=== PATIENT | male | born 1935 | race Two or more races ===

== ENCOUNTER → 2017-05-21 | Outpatient (CLI) | payer MEDICARE, OTHER ==
[2015-03-09 14:21] VITALS: BMI 28.1
[~2017-05-21] MED LIST: ALLEVE PO; ASPI-1471 PO; ASPIRIN PO; ATOR40TA24 PO; BLOO-1037 MC; BLOO1EAC MC; CEP500 PO; CHOL100052 PO; DOC100 PO; FAM20 PO; FLU180SY9 IM; FLUO-202 PO; FLUO20TA2 PO; FLUO40CA67 PO; FLUT16SP19; FOL1 PO; FOLI-68 PO; FOLI5CAP PO; HUMALOG SC; HUMNI SC; HUMNI SQ; IBU600 PO; INSU100C14 SQ; INSU100I35 SQ; INSU100V24 SQ; INSU200I4 SUBQ; ISOM60 PO; ISOS60TA42 PO; LEVO-85 PO; LIS10 PO; LISI20TA29 PO; LOR5/325 PO; METF-1 PO; METF-410 PO; METO-253 PO; METO-259 PO; METO50TA19 PO; NAPR-1043 PO; NIT4 SL; NOVOLOG SUBQ; ONDA4TAB SL; OXYGENHOME INH; PAN40 PO; PIOG45TA18 PO; [UNRECOGNIZED DRUG - CODE] MC
[2017-05-21 07:47] LABS: PLATELET COUNT, AUTOMATED 149 K/uL (150-450)
[2017-05-21 07:58] LABS: LDL CHOLESTEROL 63 mg/dl
== END ==
LOC: LAB 07:11
PROVIDERS: ATTEND Internal Medicine
DX: E11.9 Type 2 diabetes mellitus without complications (principal); I50.21 Acute systolic (congestive) heart failure; E78.5 Hyperlipidemia, unspecified; I10 Essential (primary) hypertension
CPT/HCPCS: 36415; 82040; 82247; 82310; 82374; 82435; 82465; 82565; 82947; 83036; 83718; 84075; 84132; 84155; 84295; 84439; 84443; 84450; 84460; 84478; 84481; 84520; 85025

== ENCOUNTER → 2017-06-11 | Outpatient (CLI) | payer MEDICARE, OTHER ==
[2015-03-09 14:21] VITALS: BMI 28.1
== END ==
LOC: LAB 09:12
PROVIDERS: ATTEND Nurse Practitioner Family
DX: R94.6 Abnormal results of thyroid function studies (principal)
CPT/HCPCS: 36415; 84439; 84481

== ENCOUNTER → 2017-08-19 | Outpatient (CLI) | payer MEDICARE, OTHER ==
[2015-03-09 14:21] VITALS: BMI 28.1
[~2017-08-19] MED LIST changes: +LEVO25TA61 PO; +LEVO50TA86 PO; +METO-235 PO; +NEED1DIS64 MC
== END ==
LOC: LAB 09:27
PROVIDERS: ATTEND Nurse Practitioner Family
DX: F32.9 Major depressive disorder, single episode, unspecified (principal); E78.5 Hyperlipidemia, unspecified; E11.9 Type 2 diabetes mellitus without complications
CPT/HCPCS: 36415; 82040; 82247; 82310; 82374; 82435; 82565; 82947; 83036; 84075; 84132; 84155; 84295; 84443; 84450; 84460; 84520

== ENCOUNTER → 2017-09-30 | Outpatient (CLI) | payer MEDICARE, OTHER ==
[2015-03-09 14:21] VITALS: BMI 28.1
[~2017-09-30] MED LIST changes: +LISI5TAB25 PO; -METF-410 PO; +METF-411 PO
== END ==
LOC: LAB 09:48
PROVIDERS: ATTEND Nurse Practitioner Family
DX: F32.9 Major depressive disorder, single episode, unspecified (principal); I10 Essential (primary) hypertension; E11.69 Type 2 diabetes mellitus with other specified complication; E03.9 Hypothyroidism, unspecified
CPT/HCPCS: 36415; 84443

== ENCOUNTER → 2017-12-14 | Outpatient (CLI) | payer MEDICARE, OTHER ==
[2015-03-09 14:21] VITALS: BMI 28.1
[2017-12-14 10:37] LABS: PLATELET COUNT, AUTOMATED 157 K/uL (150-450)
[2017-12-14 10:51] LABS: LDL CHOLESTEROL 68 mg/dl
== END ==
LOC: LAB 09:59
PROVIDERS: ATTEND Nurse Practitioner Family
DX: I10 Essential (primary) hypertension (principal); E78.5 Hyperlipidemia, unspecified; E11.65 Type 2 diabetes mellitus with hyperglycemia
CPT/HCPCS: 36415; 82040; 82247; 82310; 82374; 82435; 82465; 82565; 82947; 83036; 83718; 84075; 84132; 84155; 84295; 84443; 84450; 84460; 84478; 84520; 85025

== ENCOUNTER → 2018-05-30 | Outpatient (CLI) | payer MEDICARE, OTHER ==
[2015-03-09 14:21] VITALS: BMI 28.1
[~2018-05-30] MED LIST changes: +LISI-362 PO; -METF-411 PO; +METF-450 PO
[2018-05-30 10:54] LABS: PLATELET COUNT, AUTOMATED 163 K/uL (150-450)
== END ==
LOC: LAB 10:36
PROVIDERS: ATTEND Pharmacist Pharmacotherapy
DX: E11.65 Type 2 diabetes mellitus with hyperglycemia (principal); R42 Dizziness and giddiness
CPT/HCPCS: 36415; 82040; 82247; 82310; 82374; 82435; 82565; 82947; 83036; 84075; 84132; 84155; 84295; 84450; 84460; 84520; 85025

== ENCOUNTER 2018-08-19 18:15 | Emergency (ER) | payer MEDICARE, OTHER ==
[2015-03-09 14:21] VITALS: Wt 82.6 kg
[~2018-08-19 18:15] MED LIST changes: +FLUO-177 PO; +SERT-181 PO; +SERT-184 PO; +TRIA15CR40 TP
--- NOTE | 2018-08-19 18:37 | ER Report ---
History and Physical Time Seen By MD: 18:37 Hx. of Stated Complaint: Pt. having bright red rectal bleeding. Blood in toilet, filling toilet 3/4 full of blood. Pt. also constipated and having trouble urinating. Denies abdominal pain. Yesterday, he said he had a normal bowel movement. Nausea present today. HPI/ROS CHIEF COMPLAINT: rectal bleeding, unable to urinate HISTORY OF PRESENT ILLNESS: Patient is an 83-year-old male presenting to the ED with complaints of rectal bleeding and unable to urinate. Patient states that about an hour prior to arrival emergency room he had one bout of bloody diarrhea. He states that it had significant amounts of blood in it. He states that after that he felt fine. He denies any fevers, chills, did have one bout of nausea with no emesis. Patient states that he has not taken any medication for this. Patient states that he had a normal bowel movement yesterday, however has not had a bowel movement today and does feel constipated. He states that he is concerned about the amount of bleeding in his stool and wanted to be evaluated. REVIEW OF SYSTEMS: Respiratory: No cough, no dyspnea. Cardiovascular: No chest pain, no palpitations. Gastrointestinal: As noted above Musculoskeletal: No back pain. Allergies: Coded Allergies: No Known Drug Allergies (Verified , 08/19/18) Home Meds Active Scripts Sucralfate (CARAFATE) 1 Gm Tablet, 1 GM PO QID, #60 TAB Take before meals and at bedtime. Crush the tablet and mix with water before taking. Prov:SEJAL LOU [facility] 08/20/18 Pantoprazole Sodium (PANTOPRAZOLE SODIUM) 40 Mg Tablet.dr, 40 MG PO QDAY, #30 TAB.SR Prov:SEJAL LOU [employer] 08/20/18 Sertraline Hcl (SERTRALINE HCL) 100 Mg Tablet, 1 TAB PO QDAY, #30 TAB 1 Refill Prov:FELECIA GROSS APRN [employer]-C 07/22/18 Triamcinolone Acetonide 0.1% Cr 15 Gm Tube (TRIAMCINOLONE ACETONIDE 0.1% CREAM) 15 Gm Cream..g., 1 MENA TP BID for 7 Days, #60 TUBE 1 Refill apply spraingly to rash on legs twice daily until resolved do not use longer than 2 weeks Prov:FELECIA GROSS APRN-C 07/22/18 Folic Acid (FOLIC ACID) 1 Mg Tablet, 1 TAB PO QDAY, #90 TAB 0 Refills Prov:FELECIA GROSS APRN-C 07/11/18 Lisinopril (LISINOPRIL) 10 Mg Tablet, 1 TAB PO QDAY, #90 TAB 1 Refill Prov:FELECIA GROSS APRN-C 06/03/18 Levothyroxine Sodium (LEVOTHYROXINE SODIUM) 50 Mcg Tablet, 1 TAB PO DAILY, #90 TAB 0 Refills Prov:FELECIA GROSS APRN-C 06/03/18 Insulin Aspart 100 Un/Ml Pen (NOVOLOG FLEXPEN) 100 Unit/1 Ml Insuln.pen, 100 UNIT SQ DIRECTED, #2 BOX 1 Refill 30 breakfast, 10 units at noon, and 18 units at dinner Prov:FELECIA GROSS APRN-C 05/27/18 Isosorbide Mononitrate (ISOSORBIDE MONONITRATE ER) 60 Mg Tab.er.24h, 1 TAB PO QDAY, #90 TAB 1 Refill Prov:FELECIA GROSS APRN-C 03/25/18 Insulin Degludec (Tresiba Flextouch U-200) 200 Unit/Ml (3 Ml) Insuln.pen, 52 UNITS SUBQ QDAY, #9 EA 1 Refill Prov:FELECIA GROSS APRN-C 02/23/18 Atorvastatin Calcium (LIPITOR) 40 Mg Tablet, 2 TAB PO QDAY, #90 TAB 1 Refill Prov:FELECIA GROSS APRN-C 11/11/17 Metformin Hcl (METFORMIN HCL) 500 Mg Tablet, 1 TAB PO BID, #180 TAB 2 Refills Prov:FELECIA GROSS APRN-C 08/26/17 Metoprolol Succinate (TOPROL XL) 100 Mg Tab.er.24h, 1 TAB PO QDAY, #90 TAB 1 Refill Prov:FELECIA GROSS APRN-C 07/09/17 [place], Insulin Disposable (RELION PEN NEEDLES) 1 Each Dis.needle, BOX MC DIRECTED, #1 3 Refills Prov:RENATOFELECIAJESSICA BATRES [employer]ER-C 07/07/17 Blood Sugar Diagnostic (BLOOD GLUCOSE TEST STRIP) 1 Each Strip, 50 EA MC Q30D, #50 EA 12 Refills Use to test blood surgar daily. Prov:NANCY CHAVIS MD 03/03/17 Blood-Glucose Control, Normal (ACCU-CHEK SMARTVIEW) 1 Each Each, EACH MC DAILY, #50 Use to test Blood sugar daily Prov:NANCY CHAVIS MD 02/19/17 Reported Medications Blood Sugar Diagnostic, Disc (BREEZE 2) 1 Each Strip, 1 EACH MC BID, STRIP 12/12/16 Aspirin (ASPIR 81) 81 Mg Tablet.dr, 81 MG PO QDAY, TAB 03/05/15 Past Medical/Surgical History Patient has a past medical history of hypertension, hyperlipidemia, blood in stool, diabetes. Patient has surgical history of cholecystectomy, appendectomy, CABG, stents. Patient denies any pertinent family medical history. Reviewed Nurses Notes: Yes Hx Smoking: No Smoking Status: Never Smoker Exposure to Second Hand Smoke?: No Hx Substance Use Disorder: No Hx Alcohol Use: No Constitutional Vital Sign - Last 24 Hours 08/19/18 08/19/18 08/19/18 08/19/18 18:26 18:29 18:30 18:45 Temp 96.1 Pulse 89 88 81 Resp 16 B/P (MAP) 121/73 121/73 (89) 132/75 (94) Pulse Ox 92 91 91 O2 Delivery Room Air 08/19/18 08/19/18 08/19/18 08/19/18 19:00 19:15 19:30 19:45 Pulse 89 78 75 70 Resp 28 7 30 B/P (MAP) 145/80 (101) 146/77 (100) Pulse Ox 90 94 91 93 08/19/18 08/19/18 08/19/18 08/19/18 20:00 20:05 20:20 20:50 Pulse 72 72 73 88 Resp 26 28 17 38 B/P (MAP) 154/90 (111) Pulse Ox 96 96 88 08/19/18 08/19/18 08/19/18 08/19/18 21:00 21:05 21:20 21:30 Pulse 89 86 Resp 23 0 B/P (MAP) 137/70 (92) 109/53 (71) Pulse Ox 89 85 08/19/18 21:35 Pulse 82 Resp 16 Pulse Ox 95 Intake and Output 08/19/18 08/19/18 08/20/18 15:00 23:00 07:00 Intake Total 500 ml Output Total 600 ml Balance 500 ml -600 ml Physical Exam General Appearance: The patient is alert, has no immediate need for airway protection and no current signs of toxicity. Respiratory: Chest is non tender, lungs are clear to auscultation. Cardiac: regular rate and rhythm Gastrointestinal: Abdomen is soft and non tender, no masses, bowel sounds are hypoactive. Patient had large external hemorrhoids noted at 9:00 of the rectum. Musculoskeletal: Neck: Neck is supple and non tender. Extremities have full range of motion and are non tender. Skin: No rashes or lesions. DIFFERENTIAL DIAGNOSIS: After history and physical exam differential diagnosis was considered for ulcer, diverticulitis, bleeding hemorrhoids. Medical Decision Making Data Points Result Diagram: 08/19/18191008/19/181910 Laboratory Hematology Test 08/19/18 19:11 08/19/18 19:21 08/19/18 23:25 Red Blood Count 4.70 M/uL (4.00-5.60) Mean Corpuscular Volume 94.0 fL (80.0-96.0) Mean Corpuscular Hemoglobin 31.7 pg (26.0-33.0) Mean Corpuscular Hemoglobin Concent 33.7 g/dL (32.0-36.0) Red Cell Distribution Width 13.8 % (11.5-14.5) Mean Platelet Volume 8.0 fL (7.2-11.1) Neutrophils (%) (Auto) 93.4 % (39.4-72.5) Lymphocytes (%) (Auto) 3.1 % (17.6-49.6) Monocytes (%) (Auto) 3.2 % (4.1-12.4) Eosinophils (%) (Auto) 0.1 % (0.4-6.7) Basophils (%) (Auto) 0.2 % (0.3-1.4) Nucleated RBC Relative Count (auto) 0.1 /100WBC Neutrophils # (Auto) 11.7 K/uL (2.0-7.4) Lymphocytes # (Auto) 0.4 K/uL (1.3-3.6) Monocytes # (Auto) 0.4 K/uL (0.3-1.0) Eosinophils # (Auto) 0.0 K/uL (0.0-0.5) Basophils # (Auto) 0.0 K/uL (0.0-0.1) Nucleated RBC Absolute Count (auto) 0.01 K/uL Peripheral Blood Smear Yes Y/N Sodium Level 136 mmol/L (137-145) Potassium Level 4.3 mmol/L (3.5-5.0) Chloride Level 98 mmol/L (98-107) Carbon Dioxide Level 25 mmol/L (22-30) Blood Urea Nitrogen 23 mg/dl (9-21) Creatinine 1.00 mg/dl (0.66-1.25) Glomerular Filtration Rate Calc > 60.0 Random Glucose 306 mg/dl (75-110) Calcium Level 9.1 mg/dl (8.4-10.2) Total Bilirubin 0.6 mg/dl (0.2-1.3) Aspartate Amino Transf (AST/SGOT) 37 U/L (0-35) Alanine Aminotransferase (ALT/SGPT) 32 U/L (0-56) Alkaline Phosphatase 123 U/L (0-126) Total Protein 7.7 g/dl (6.3-8.2) Albumin 4.4 g/dl (3.5-5.0) Amylase Level 57 U/L (0-110) Lipase 22 U/L (23-300) Helicobacter pylori IgG Antibody Negative (NEGATIVE) Stool Occult Blood (IFOB) Positive (NEGATIVE) Urine Color Yellow Urine Clarity Clear Urine pH 5.0 pH (4.8-9.5) Urine Specific [place] 1.045 Urine Protein Negative mg/dL (NEGATIVE) Urine Glucose (UA) 500 mg/dL (NEGATIVE) Urine Ketones 20 mg/dL (NEGATIVE) Urine Blood Negative (NEGATIVE) Urine Nitrite Negative (NEGATIVE) Urine Bilirubin Negative (NEGATIVE) Urine Urobilinogen 0.2 mg/dL (0.2-1.9) Urine Leukocyte Esterase Negative (NEGATIVE) Urine RBC 3 /HPF (0-2/HPF) Urine WBC 1 /HPF (0-5/HPF) Urine Squamous Epithelial Cells None /LPF (</=FEW) Urine Transitional Epithelial Cells Few /LPF (NONE-FEW) Urine Bacteria Negative /HPF (NONE-FEW) Urine Hyaline Casts Few /LPF (NONE-FEW) Urine Mucus None /HPF (NONE-FEW) Chemistry Test 08/19/18 19:11 08/19/18 19:21 08/19/18 23:25 White Blood Count 12.5 k/uL (4.5-11.0) Red Blood Count 4.70 M/uL (4.00-5.60) Hemoglobin 14.9 g/dL (14.0-18.0) Hematocrit 44.2 % (42.0-52.0) Mean Corpuscular Volume 94.0 fL (80.0-96.0) Mean Corpuscular Hemoglobin 31.7 pg (26.0-33.0) Mean Corpuscular Hemoglobin Concent 33.7 g/dL (32.0-36.0) Red Cell Distribution Width 13.8 % (11.5-14.5) Platelet Count 210 K/uL (150-450) Mean Platelet Volume 8.0 fL (7.2-11.1) Neutrophils (%) (Auto) 93.4 % (39.4-72.5) Lymphocytes (%) (Auto) 3.1 % (17.6-49.6) Monocytes (%) (Auto) 3.2 % (4.1-12.4) Eosinophils (%) (Auto) 0.1 % (0.4-6.7) Basophils (%) (Auto) 0.2 % (0.3-1.4) Nucleated RBC Relative Count (auto) 0.1 /100WBC Neutrophils # (Auto) 11.7 K/uL (2.0-7.4) Lymphocytes # (Auto) 0.4 K/uL (1.3-3.6) Monocytes # (Auto) 0.4 K/uL (0.3-1.0) Eosinophils # (Auto) 0.0 K/uL (0.0-0.5) Basophils # (Auto) 0.0 K/uL (0.0-0.1) Nucleated RBC Absolute Count (auto) 0.01 K/uL Peripheral Blood Smear Yes Y/N Glomerular Filtration Rate Calc > 60.0 Calcium Level 9.1 mg/dl (8.4-10.2) Total Bilirubin 0.6 mg/dl (0.2-1.3) Aspartate Amino Transf (AST/SGOT) 37 U/L (0-35) Alanine Aminotransferase (ALT/SGPT) 32 U/L (0-56) Alkaline Phosphatase 123 U/L (0-126) Total Protein 7.7 g/dl (6.3-8.2) Albumin 4.4 g/dl (3.5-5.0) Amylase Level 57 U/L (0-110) Lipase 22 U/L (23-300) Helicobacter pylori IgG Antibody Negative (NEGATIVE) Stool Occult Blood (IFOB) Positive (NEGATIVE) Urine Color Yellow Urine Clarity Clear Urine pH 5.0 pH (4.8-9.5) Urine Specific [place] 1.045 Urine Protein Negative mg/dL (NEGATIVE) Urine Glucose (UA) 500 mg/dL (NEGATIVE) Urine Ketones 20 mg/dL (NEGATIVE) Urine Blood Negative (NEGATIVE) Urine Nitrite Negative (NEGATIVE) Urine Bilirubin Negative (NEGATIVE) Urine Urobilinogen 0.2 mg/dL (0.2-1.9) Urine Leukocyte Esterase Negative (NEGATIVE) Urine RBC 3 /HPF (0-2/HPF) Urine WBC 1 /HPF (0-5/HPF) Urine Squamous Epithelial Cells None /LPF (</=FEW) Urine Transitional Epithelial Cells Few /LPF (NONE-FEW) Urine Bacteria Negative /HPF (NONE-FEW) Urine Hyaline Casts Few /LPF (NONE-FEW) Urine Mucus None /HPF (NONE-FEW) Urinalysis Test 08/19/18 23:25 Urine Color Yellow Urine Clarity Clear Urine pH 5.0 pH (4.8-9.5) Urine Specific [place] 1.045 Urine Protein Negative mg/dL (NEGATIVE) Urine Glucose (UA) 500 mg/dL (NEGATIVE) Urine Ketones 20 mg/dL (NEGATIVE) Urine Blood Negative (NEGATIVE) Urine Nitrite Negative (NEGATIVE) Urine Bilirubin Negative (NEGATIVE) Urine Urobilinogen 0.2 mg/dL (0.2-1.9) Urine Leukocyte Esterase Negative (NEGATIVE) Urine RBC 3 /HPF (0-2/HPF) Urine WBC 1 /HPF (0-5/HPF) Urine Squamous Epithelial Cells None /LPF (</=FEW) Urine Transitional Epithelial Cells Few /LPF (NONE-FEW) Urine Bacteria Negative /HPF (NONE-FEW) Urine Hyaline Casts Few /LPF (NONE-FEW) Urine Mucus None /HPF (NONE-FEW) EKG/Imaging Imaging CT ABDOMEN PELVIS W/ CON HISTORY: Bloody diarrhea. COMPARISON: None. TECHNIQUE: Axial images were obtained from the lung bases through the symphysis pubis with intravenous contrast. Sagittal and coronal reformats were performed. One of the following dose optimization techniques was utilized in the performance of this exam: Automated exposure control; adjustment of the mA and/or kV according to the patient's size; or use of an iterative reconstruction technique. Specific details can be referenced in the facility's radiology CT exam operational policy. CONTRAST: 85 mL IV Isovue 370. FINDINGS: Lower chest: There is minimal atelectasis. There are calcified granulomas. There is coronary artery calcification. Liver: There are calcified granulomas. Gallbladder/biliary: Cholecystectomy. No intrahepatic or extrahepatic ductal dilation. Pancreas: Mild to moderate atrophy. Spleen: Normal. Adrenals: Fullness to the bilateral adrenal glands, compatible with hyperplasia. No mass. Kidneys/ureters/bladder: There is bilateral perinephric stranding, nonspecific, but often seen in older patients. There are too small to characterize low attenuating lesions within the left kidney, statistically likely to represent benign cysts. Ureters are normal. There is mild thickening of the bladder wall given the degree of distention. GI/mesentery/peritoneal cavity: There is a small type I hiatal hernia. There is no bowel obstruction. There is no wall thickening or pericolonic stranding. There is a large amount of formed stool in the rectal vault. There is a mild to moderate amount of formed stool in the rest of the colon. The appendix is not discretely visualized. No inflammatory stranding in the right lower quadrant. There are a few diverticula at the hepatic flexure. No diverticulitis. Vessels: There is severe atherosclerotic disease. No aneurysm. No dissection. Nodes: Normal. Pelvis: There are phleboliths. There is a moderate size fat-containing left inguinal hernia. Bones/vertebra/soft tissues: There is thickening of the skin of the right anterolateral thigh with an underlying high density structure or collection measuring 0.9 x 4.3 x greater than 5.2 cm. It extends off the inferior margin of the images (axial image 150 series 2). There are sternal closure wires. There is bony fusion across the right sacroiliac joint. Degenerative changes cause severe spinal canal stenosis at L3-4 (axial image 66 series 2). There is moderate degenerative change of the spine. There are numerous vacuum clefts. There is mild wedging of T12 and L1, likely physiologic. There is mild to moderate degenerative change of the hips. IMPRESSION: 1. Large amount of formed stool in the rectal vault and mild to moderate amount of stool throughout the rest of colon. No CT evidence for colitis. No bowel obstruction. 2. Diverticulosis without diverticulitis. 3. Degenerative changes cause severe narrowing of the spinal canal at L3-4. 4. Coronary artery calcification. 5. Skin thickening of the right anterolateral thigh with underlying collection or structure, potentially a hematoma/seroma. Please correlate with any bruising at this location. 6. Mild bladder wall thickening given the degree of distention, potentially due to a degree of bladder outlet obstruction. Report Dictated By: Jennifer Aguila at 08/19/2018 9:03 PM Report E-Signed By: Jennifer Aguila at 08/19/2018 9:17 PM ED Course/Re-evaluation ED Course Patient was admitted on exam room, history and physical were obtained. Differen tial diagnoses were considered. On examination lungs are clear, heart is regular, abdomen soft and nontender. Bowel sounds are hypoactive. A CBC, CMP, urinalysis, H. pylori were obtained. Lab results were unremarkable. Patient did have an elevated blood sugar of 306. Patient had a stable H&H. White count was slightly elevated 12.5. CT scan of the abdomen and pelvis was done. That showed significant amount of stool in the rectal vault. With me in the air of the study was fairly unremarkable. We did go ahead and do a enema. We were not able to have any success with that. Patient did have some nausea when he got up. The patient did have occult stool which was positive. Patient was not able to u rinate. We did place a catheter and was able to drain out 600 cc of urine. That was sent him to the lab and showed large glucose and some ketones. I discussed the findings with the patient and his . With him not being able have a bowel movement we did discuss doing a digital disimpaction. They deferred at this time. As a result of that deferring we will go ahead and discharge patient home at this time. We will have him do mag citrate tomorrow morning. Is my thought that with the patient having a difficult time urinating those likely secondary to the stool burden in the rectal vault. We will DC the catheter and they're to return to emergency room if condition worsens over the weekend. However would like him follow-up with his primary care provider early next week. Decision to Disposition Date: Aug 19, 2018 Decision to Disposition Time: 23:58 Depart Departure Latest Vital Signs Vital Signs Date Time Temp Pulse Resp B/P (MAP) Pulse Ox O2 Delivery O2 Flow Rate FiO2 08/19/18 21:35 82 16 95 08/19/18 21:30 109/53 (71) 08/19/18 18:26 96.1 Room Air Impression: Primary Impression: Blood in stool Additional Impression: Constipation Condition: Improved Disposition: HOME OR SELF-CARE Referrals: FELECIA GROSS APRN-C (PCP) New Scripts Sucralfate (CARAFATE) 1 Gm Tablet 1 GM PO QID, #60 TAB Take before meals and at bedtime. Crush the tablet and mix with water before taking. Prov: SEJAL LOU 08/20/18 Pantoprazole Sodium (PANTOPRAZOLE SODIUM) 40 Mg Tablet.dr 40 MG PO QDAY, #30 TAB.SR Prov: SEJAL LOU 08/20/18 Patient Instructions: Constipation (ED) Additional Instructions: Increase fluid intake. Get plenty of rest. Take the Mag Citrate in the morning. Return to the ER if condition worsens. Follow up with your primary care provider in the next week, Wednesday or Wednesday. Take the medication as prescribed. Continue with your normal medications. Problem Qualifiers Additional Impression: Constipation Constipation type: unspecified constipation type Qualified Codes: K59.00 - Constipation, unspecified SEJAL LOU Aug 19, 2018 18:37
[2018-08-19] MEDS ORDERED: NS(*) 0.9% 500 ML BAG 500 ML IV ONE (18:55)
[2018-08-19 19:31] LABS: PLATELET COUNT, AUTOMATED 210 K/uL (150-450)
[2018-08-19] MEDS ORDERED: MORPHINE 2 MG/ML SYR IVP ONE (19:55)
[2018-08-19] MEDS ORDERED: IOPAMIDOL 76% 150 ML INFUS BTL 150 ML ONE (20:05)
[2018-08-19] MEDS ORDERED: ONDANSETRON 4 MG/2 ML VIAL ONE (20:32)
--- NOTE | 2018-08-19 21:22 | RADIOLOGY IMAGING REPORT ---
FACILITY: [facility] PATIENT NAME: Mike Andre : 1935 MR: [id number] V: [id number] EXAM DATE: ORDERING PHYSICIAN: SEJAL LOU TECHNOLOGIST: Location: [facility] [place] Patient: Mike Andre : 1935 Visit/Account:[id number] Date of Sevice: 08/19/2018 CT ABDOMEN PELVIS W/ CON HISTORY: Bloody diarrhea. COMPARISON: None. TECHNIQUE: Axial images were obtained from the lung bases through the symphysis pubis with intravenou s contrast. Sagittal and coronal reformats were performed. One of the following dose optimization techniques was utilized in the performance of this exam: Autom ated exposure control; adjustment of the mA and/or kV according to the patient's size; or use of an i terative reconstruction technique. Specific details can be referenced in the facility's radiology CT exam operational policy. CONTRAST: 85 mL IV Isovue 370. FINDINGS: Lower chest: There is minimal atelectasis. There are calcified granulomas. There is coronary artery c alcification. Liver: There are calcified granulomas. Gallbladder/biliary: Cholecystectomy. No intrahepatic or extrahepatic ductal dilation. Pancreas: Mild to moderate atrophy. Spleen: Normal. Adrenals: Fullness to the bilateral adrenal glands, compatible with hyperplasia. No mass. Kidneys/ureters/bladder: There is bilateral perinephric stranding, nonspecific, but often seen in old er patients. There are too small to characterize low attenuating lesions within the left kidney, stat istically likely to represent benign cysts. Ureters are normal. There is mild thickening of the bladd er wall given the degree of distention. GI/mesentery/peritoneal cavity: There is a small type I hiatal hernia. There is no bowel obstruction. There is no wall thickening or pericolonic stranding. There is a large amount of formed stool in the rectal vault. There is a mild to moderate amount of formed stool in the rest of the colon. The appen pratibha is not discretely visualized. No inflammatory stranding in the right lower quadrant. There are a few diverticula at the hepatic flexure. No diverticulitis. Vessels: There is severe atherosclerotic disease. No aneurysm. No dissection. Nodes: Normal. Pelvis: There are phleboliths. There is a moderate size fat-containing left inguinal hernia. Bones/vertebra/soft tissues: There is thickening of the skin of the right anterolateral thigh with an underlying high density structure or collection measuring 0.9 x 4.3 x greater than 5.2 cm. It extend s off the inferior margin of the images (axial image 150 series 2). There are sternal closure wires. There is bony fusion across the right sacroiliac joint. Degenerative changes cause severe spinal lupe l stenosis at L3-4 (axial image 66 series 2). There is moderate degenerative change of the spine. The re are numerous vacuum clefts. There is mild wedging of T12 and L1, likely physiologic. There is mild to moderate degenerative change of the hips. IMPRESSION: 1. Large amount of formed stool in the rectal vault and mild to moderate amount of stool throughout t he rest of colon. No CT evidence for colitis. No bowel obstruction. 2. Diverticulosis without diverticulitis. 3. Degenerative changes cause severe narrowing of the spinal canal at L3-4. 4. Coronary artery calcification. 5. Skin thickening of the right anterolateral thigh with underlying collection or structure, potentia lly a hematoma/seroma. Please correlate with any bruising at this location. 6. Mild bladder wall thickening given the degree of distention, potentially due to a degree of bladde r outlet obstruction. Report Dictated By: Jennifer Aguila at 08/19/2018 9:03 PM Report E-Signed By: Jennifer Aguila at 08/19/2018 9:17 PM WSN:[id number]
[2018-08-19 21:30] VITALS: BP 109/53
[2018-08-20] MEDS ORDERED: SUCR1TAB85 PO (00:02)
[2018-08-20] MEDS ORDERED: PANT40TA65 PO (00:02)
[2018-08-20] MEDS ORDERED: MAGNESIUM CITRATE 300 ML BTL PO ONE (00:05)
[2018-08-21] MEDS ORDERED: HYDR25SU34 RC (14:54)
[2018-08-24] MEDS ORDERED: HYDR10FO7 RC (16:09)
== END 2018-08-20 00:34 | disposition home or self-care (01) ==
LOC: ER 18:48
DX: K92.1 Melena (principal); K59.00 Constipation, unspecified
CPT/HCPCS: 74177; 81001; 82150; 82274; 83690; 85025; 86677; 96374; 99284; A9270; J2270; J2405; J7040; Q9967; 82040; 82247; 82310; 82374; 82435; 82565; 82947; 84075; 84132; 84155; 84295; 84450; 84460; 84520

== ENCOUNTER 2018-08-21 11:53 | Emergency (ER) | payer MEDICARE, OTHER ==
[2015-03-09 14:21] VITALS: Wt 82.6 kg
[~2018-08-21 11:53] MED LIST changes: +PANT40TA65 PO; +SUCR1TAB85 PO
--- NOTE | 2018-08-21 12:07 | ER Report ---
History and Physical Time Seen By MD: 12:07 Hx. of Stated Complaint: PATIENT SEEN ON WEDNESDAY FOR CONSTIPATION. WAS GIVEN ENEMA. HAS NOT HAD BOWEL MOVEMENT SINCE WEDNESDAY. HPI/ROS CHIEF COMPLAINT: Constipation HISTORY OF PRESENT ILLNESS: Patient is an 83 year old male presenting to the ED for complaints of constipation. Patient was in the ED last Wednesday. During that visit a CT scan of his abdomen was done and a large amount of stool was found in the rectal vault. Patient received an enema without any results. Patient was sent home with magnesium citrate. Patient took this yesterday, Wednesday. Patient states he did not have a bowel movement after the magnesium citrate. REVIEW OF SYSTEMS: Respiratory: No cough, no dyspnea. Cardiovascular: No chest pain, no palpitations. Gastrointestinal: No nausea or vomiting. Abdominal discomfort. Musculoskeletal: No back pain. Allergies: Coded Allergies: No Known Drug Allergies (Verified , 08/19/18) Home Meds Active Scripts Hydrocortisone Acetate (HYDROCORTISONE ACETATE) 25 Mg Supp.rect, 25 MG RC BID, #14 SUPP.RECT Prov:SEJAL LOUP 08/21/18 Sucralfate (CARAFATE) 1 Gm Tablet, 1 GM PO QID, #60 TAB Take before meals and at bedtime. Crush the tablet and mix with water before taking. Prov:SEJAL LOU 08/20/18 Pantoprazole Sodium (PANTOPRAZOLE SODIUM) 40 Mg Tablet.dr, 40 MG PO QDAY, #30 TAB.SR Prov:SEJAL LOU 08/20/18 Sertraline Hcl (SERTRALINE HCL) 100 Mg Tablet, 1 TAB PO QDAY, #30 TAB 1 Refill Prov:FELECIA GROSS APRN-C 07/22/18 Triamcinolone Acetonide 0.1% Cr 15 Gm Tube (TRIAMCINOLONE ACETONIDE 0.1% CREAM) 15 Gm Cream..g., 1 MENA TP BID for 7 Days, #60 TUBE 1 Refill apply spraingly to rash on legs twice daily until resolved do not use longer than 2 weeks Prov:FELECIA GROSS APRNP-C 07/22/18 Folic Acid (FOLIC ACID) 1 Mg Tablet, 1 TAB PO QDAY, #90 TAB 0 Refills Prov:FELECIA GROSS APRN-C 07/11/18 Lisinopril (LISINOPRIL) 10 Mg Tablet, 1 TAB PO QDAY, #90 TAB 1 Refill Prov:FELECIA GROSS APRN-C 06/03/18 Levothyroxine Sodium (LEVOTHYROXINE SODIUM) 50 Mcg Tablet, 1 TAB PO DAILY, #90 TAB 0 Refills Prov:FELECIA GROSS APRN 06/03/18 Insulin Aspart 100 Un/Ml Pen (NOVOLOG FLEXPEN) 100 Unit/1 Ml Insuln.pen, 100 UNIT SQ DIRECTED, #2 BOX 1 Refill 30 breakfast, 10 units at noon, and 18 units at dinner Prov:EFLECIA GROSS APRN 05/27/18 Isosorbide Mononitrate (ISOSORBIDE MONONITRATE ER) 60 Mg Tab.er.24h, 1 TAB PO QDAY, #90 TAB 1 Refill Prov:FELECIA GROSS APRN 03/25/18 Insulin Degludec (Tresiba Flextouch U-200) 200 Unit/Ml (3 Ml) Insuln.pen, 52 UNITS SUBQ QDAY, #9 EA 1 Refill Prov:FELECIA GROSS APRN-C 02/23/18 Atorvastatin Calcium (LIPITOR) 40 Mg Tablet, 2 TAB PO QDAY, #90 TAB 1 Refill Prov:FELECIA GROSS APRN-C 11/11/17 Metformin Hcl (METFORMIN HCL) 500 Mg Tablet, 1 TAB PO BID, #180 TAB 2 Refills Prov:FELECIA GROSS APRN-C 08/26/17 Metoprolol Succinate (TOPROL XL) 100 Mg Tab.er.24h, 1 TAB PO QDAY, #90 TAB 1 Refill Prov:FELECIA GROSS APRNC 07/09/17 [place], Insulin Disposable (RELION PEN NEEDLES) 1 Each Dis.needle, BOX MC DIRECTED, #1 3 Refills Prov:FELECIA GROSS APRN-C 07/07/17 Blood Sugar Diagnostic (BLOOD GLUCOSE TEST STRIP) 1 Each Strip, 50 EA MC Q30D, #50 EA 12 Refills Use to test blood surgar daily. Prov:NANCY CHAVIS MD 03/03/17 Blood-Glucose Control, Normal (ACCU-CHEK SMARTVIEW) 1 Each Each, EACH MC DAILY, #50 Use to test Blood sugar daily Prov:NANCY CHAVIS MD 02/19/17 Reported Medications Blood Sugar Diagnostic, Disc (BREEZE 2) 1 Each Strip, 1 EACH MC BID, STRIP 12/12/16 Aspirin (ASPIR 81) 81 Mg Tablet.dr, 81 MG PO QDAY, TAB 03/05/15 Past Medical/Surgical History Patient has a past medical history of hypertension, hypercholesteroleai, diabetes, and cardiac disease. Patient has a surgical history of CABG, cholecystecomy, appendectomy, and cardiac stents, Reviewed Nurses Notes: Yes Hx Smoking: No Smoking Status: Never Smoker Exposure to Second Hand Smoke?: No Hx Substance Use Disorder: No Hx Alcohol Use: No Constitutional Vital Sign - Last 24 Hours 08/21/18 08/21/18 08/21/18 08/21/18 11:53 11:57 11:58 12:00 Temp 97.8 Pulse 85 92 Resp 16 B/P (MAP) 128/97 128/97 (107) 144/93 (110) Pulse Ox 91 O2 Delivery Room Air 08/21/18 08/21/18 08/21/18 08/21/18 12:13 12:30 12:33 12:53 Pulse 84 80 79 Resp 17 22 B/P (MAP) 142/76 (98) Pulse Ox 94 93 91 08/21/18 08/21/18 08/21/18 08/21/18 13:00 13:13 13:33 13:41 Pulse 81 85 Resp 42 B/P (MAP) 138/83 (101) Pulse Ox 97 O2 Flow Rate 2.0 08/21/18 15:28 B/P (MAP) 126/69 (88) Physical Exam General Appearance: The patient is alert, has no immediate need for airway protection and no current signs of toxicity. Eyes: Pupils equal and round no injection. Respiratory: Chest is non tender, lungs are clear to auscultation. Cardiac: regular rate and rhythm Gastrointestinal: Abdomen is soft and non tender, no masses, bowel sounds normal. Generalized tenderness to palpitation noted. Musculoskeletal: Neck: Neck is supple and non tender. DIFFERENTIAL DIAGNOSIS: After history and physical exam differential diagnosis was considered for constipation, impaction, hemorrhoids. Medical Decision Making Data Points Result Diagram: 08/21/18 1223 08/21/18 1223 Laboratory Hematology Test 08/21/18 12:23 08/21/18 15:09 Red Blood Count 4.47 M/uL (4.00-5.60) Mean Corpuscular Volume 94.0 fL (80.0-96.0) Mean Corpuscular Hemoglobin 32.1 pg (26.0-33.0) Mean Corpuscular Hemoglobin Concent 34.1 g/dL (32.0-36.0) Red Cell Distribution Width 13.7 % (11.5-14.5) Mean Platelet Volume 8.0 fL (7.2-11.1) Neutrophils (%) (Auto) 82.6 % (39.4-72.5) Lymphocytes (%) (Auto) 7.0 % (17.6-49.6) Monocytes (%) (Auto) 8.1 % (4.1-12.4) Eosinophils (%) (Auto) 0.7 % (0.4-6.7) Basophils (%) (Auto) 1.6 % (0.3-1.4) Nucleated RBC Relative Count (auto) 0.0 /100WBC Neutrophils # (Auto) 6.8 K/uL (2.0-7.4) Lymphocytes # (Auto) 0.6 K/uL (1.3-3.6) Monocytes # (Auto) 0.7 K/uL (0.3-1.0) Eosinophils # (Auto) 0.1 K/uL (0.0-0.5) Basophils # (Auto) 0.1 K/uL (0.0-0.1) Nucleated RBC Absolute Count (auto) 0.00 K/uL Peripheral Blood Smear Yes Y/N Sodium Level 136 mmol/L (137-145) Potassium Level 3.8 mmol/L (3.5-5.0) Chloride Level 100 mmol/L (98-107) Carbon Dioxide Level 26 mmol/L (22-30) Blood Urea Nitrogen 21 mg/dl (9-21) Creatinine 0.80 mg/dl (0.66-1.25) Glomerular Filtration Rate Calc > 60.0 Random Glucose 275 mg/dl (75-110) Calcium Level 8.9 mg/dl (8.4-10.2) Total Bilirubin 1.4 mg/dl (0.2-1.3) Aspartate Amino Transf (AST/SGOT) 54 U/L (0-35) Alanine Aminotransferase (ALT/SGPT) 31 U/L (0-56) Alkaline Phosphatase 90 U/L (0-126) Total Protein 7.9 g/dl (6.3-8.2) Albumin 4.3 g/dl (3.5-5.0) Urine Color Yellow Urine Clarity Clear Urine pH 6.0 pH (4.8-9.5) Urine Specific [place] 1.027 Urine Protein 30 mg/dL (NEGATIVE) Urine Glucose (UA) 500 mg/dL (NEGATIVE) Urine Ketones Trace mg/dL (NEGATIVE) Urine Blood Negative (NEGATIVE) Urine Nitrite Negative (NEGATIVE) Urine Bilirubin Negative (NEGATIVE) Urine Urobilinogen 4.0 mg/dL (0.2-1.9) Urine Leukocyte Esterase Negative (NEGATIVE) Urine RBC 1 /HPF (0-2/HPF) Urine WBC 3 /HPF (0-5/HPF) Urine Squamous Epithelial Cells None /LPF (</=FEW) Urine Bacteria Negative /HPF (NONE-FEW) Urine Mucus None /HPF (NONE-FEW) Chemistry Test 08/21/18 12:23 08/21/18 15:09 White Blood Count 8.2 k/uL (4.5-11.0) Red Blood Count 4.47 M/uL (4.00-5.60) Hemoglobin 14.3 g/dL (14.0-18.0) Hematocrit 42.0 % (42.0-52.0) Mean Corpuscular Volume 94.0 fL (80.0-96.0) Mean Corpuscular Hemoglobin 32.1 pg (26.0-33.0) Mean Corpuscular Hemoglobin Concent 34.1 g/dL (32.0-36.0) Red Cell Distribution Width 13.7 % (11.5-14.5) Platelet Count 178 K/uL (150-450) Mean Platelet Volume 8.0 fL (7.2-11.1) Neutrophils (%) (Auto) 82.6 % (39.4-72.5) Lymphocytes (%) (Auto) 7.0 % (17.6-49.6) Monocytes (%) (Auto) 8.1 % (4.1-12.4) Eosinophils (%) (Auto) 0.7 % (0.4-6.7) Basophils (%) (Auto) 1.6 % (0.3-1.4) Nucleated RBC Relative Count (auto) 0.0 /100WBC Neutrophils # (Auto) 6.8 K/uL (2.0-7.4) Lymphocytes # (Auto) 0.6 K/uL (1.3-3.6) Monocytes # (Auto) 0.7 K/uL (0.3-1.0) Eosinophils # (Auto) 0.1 K/uL (0.0-0.5) Basophils # (Auto) 0.1 K/uL (0.0-0.1) Nucleated RBC Absolute Count (auto) 0.00 K/uL Peripheral Blood Smear Yes Y/N Glomerular Filtration Rate Calc > 60.0 Calcium Level 8.9 mg/dl (8.4-10.2) Total Bilirubin 1.4 mg/dl (0.2-1.3) Aspartate Amino Transf (AST/SGOT) 54 U/L (0-35) Alanine Aminotransferase (ALT/SGPT) 31 U/L (0-56) Alkaline Phosphatase 90 U/L (0-126) Total Protein 7.9 g/dl (6.3-8.2) Albumin 4.3 g/dl (3.5-5.0) Urine Color Yellow Urine Clarity Clear Urine pH 6.0 pH (4.8-9.5) Urine Specific [place] 1.027 Urine Protein 30 mg/dL (NEGATIVE) Urine Glucose (UA) 500 mg/dL (NEGATIVE) Urine Ketones Trace mg/dL (NEGATIVE) Urine Blood Negative (NEGATIVE) Urine Nitrite Negative (NEGATIVE) Urine Bilirubin Negative (NEGATIVE) Urine Urobilinogen 4.0 mg/dL (0.2-1.9) Urine Leukocyte Esterase Negative (NEGATIVE) Urine RBC 1 /HPF (0-2/HPF) Urine WBC 3 /HPF (0-5/HPF) Urine Squamous Epithelial Cells None /LPF (</=FEW) Urine Bacteria Negative /HPF (NONE-FEW) Urine Mucus None /HPF (NONE-FEW) Urinalysis Test 08/21/18 15:09 Urine Color Yellow Urine Clarity Clear Urine pH 6.0 pH (4.8-9.5) Urine Specific [place] 1.027 Urine Protein 30 mg/dL (NEGATIVE) Urine Glucose (UA) 500 mg/dL (NEGATIVE) Urine Ketones Trace mg/dL (NEGATIVE) Urine Blood Negative (NEGATIVE) Urine Nitrite Negative (NEGATIVE) Urine Bilirubin Negative (NEGATIVE) Urine Urobilinogen 4.0 mg/dL (0.2-1.9) Urine Leukocyte Esterase Negative (NEGATIVE) Urine RBC 1 /HPF (0-2/HPF) Urine WBC 3 /HPF (0-5/HPF) Urine Squamous Epithelial Cells None /LPF (</=FEW) Urine Bacteria Negative /HPF (NONE-FEW) Urine Mucus None /HPF (NONE-FEW) EKG/Imaging Imaging Exam type: KUB SINGLE VIEW ABDOMEN History: constipation Comparison: CT scan 08/19/2018. Findings: Bowel gas pattern demonstrates mild constipation but no bowel obstruction or free air. Surgical clips project over the right upper quadrant. The osseous structures demonstrate degenerative changes. IMPRESSION: 1. Constipation but no definite bowel obstruction or free air. Report Dictated By: Luiz Aleman MD at 08/21/2018 1:38 PM Report E-Signed By: Luiz Aleman MD at 08/21/2018 1:40 PM ED Course/Re-evaluation ED Course Patient was admitted to the room and placed in the bed. History and physical were done. Differential diagnoses were considered. An IV was placed and lab work drawn. Discussed with the patient about doing a digital disimpaction. Gave the patient 20 mg of ketamine. Rectal disimpaction did not produce any stool. Talked with patient and obtained a KUB x-ray. The x-ray did not show the stool that was found in the CT scan 2 days ago. Patient and patient's were informed of results. Prescribed the patient a steroid suppository. Told patient he could use preparation H around the anal opening and take Miralax OTC. and patient verbalized understanding. Patient to follow up with his PCP. Patient discharged to home. Decision to Disposition Date: Aug 21, 2018 Decision to Disposition Time: 14:58 Depart Departure Latest Vital Signs Vital Signs Date Time Temp Pulse Resp B/P (MAP) Pulse Ox O2 Delivery O2 Flow Rate FiO2 08/21/18 15:28 126/69 (88) 08/21/18 13:41 2.0 08/21/18 13:33 85 08/21/18 13:13 42 97 08/21/18 11:57 97.8 Room Air Impression: Primary Impression: Constipation Additional Impression: Hemorrhoids Condition: Improved Disposition: HOME OR SELF-CARE Referrals: FELECIA GROSS APRN-C (PCP) New Scripts Hydrocortisone Acetate (HYDROCORTISONE ACETATE) 25 Mg Supp.rect 25 MG RC BID, #14 SUPP.RECT Prov: SEJAL LOU 08/21/18 Patient Instructions: Constipation (ED) Additional Instructions: Increase fluid intake. Get plenty of rest. Follow up with your primary care provider tomorrow or Wednesday. Take the medication as prescribed. Return to the ER if condition worsens. Increase activity. You may apply some Preparation H to the external hemorrhoids. Take Miralax, 1 capful daily. Problem Qualifiers Primary Impression: Constipation Constipation type: unspecified constipation type Qualified Codes: K59.00 - Constipation, unspecified Additional Impression: Hemorrhoids Hemorrhoid type: unspecified Qualified Codes: K64.9 - Unspecified hemorrhoids SEJAL LOU Aug 21, 2018 12:07
[2018-08-21] MEDS ORDERED: KETAMINE HCL-NS 50 MG/5 ML SYR IVP ONE (12:20)
[2018-08-21 12:37] LABS: PLATELET COUNT, AUTOMATED 178 K/uL (150-450)
--- NOTE | 2018-08-21 13:44 | RADIOLOGY IMAGING REPORT ---
FACILITY: [facility] PATIENT NAME: Mike Andre : 1935 MR: [id number] V: [id number] EXAM DATE: ORDERING PHYSICIAN: SEJAL LOU TECHNOLOGIST: [place] [facility] [place] : 1935 Visit/Account:[id number] Date of Sevice: 08/21/2018 Exam type: KUB SINGLE VIEW ABDOMEN History: constipation Comparison: CT scan 08/19/2018. Findings: Bowel gas pattern demonstrates mild constipation but no bowel obstruction or free air. Surgical clips project over the right upper quadrant. The osseous structures demonstrate degenerativ e changes. IMPRESSION: 1. Constipation but no definite bowel obstruction or free air. Report Dictated By: Luiz Aleman MD at 08/21/2018 1:38 PM Report E-Signed By: Luiz Aleman MD at 08/21/2018 1:40 PM WSN:[id number]
[2018-08-21] MEDS ORDERED: HYDR25SU34 RC (14:54)
[2018-08-21 15:28] VITALS: BP 126/69
[2018-08-24] MEDS ORDERED: HYDR10FO7 RC (16:09)
[2018-08-25] MEDS ORDERED: LEVO75TA73 PO (09:44)
== END 2018-08-21 15:32 | disposition home or self-care (01) ==
LOC: ER 12:18
DX: K59.00 Constipation, unspecified (principal); K64.9 Unspecified hemorrhoids
CPT/HCPCS: 74018; 81001; 85025; 96374; 99283; J3490; 82040; 82247; 82310; 82374; 82435; 82565; 82947; 84075; 84132; 84155; 84295; 84450; 84460; 84520

== ENCOUNTER → 2018-08-24 | Outpatient (CLI) | payer MEDICARE, OTHER ==
[2015-03-09 14:21] VITALS: BMI 28.1
[~2018-08-24] MED LIST changes: +HYDR10FO7 RC; +HYDR25SU34 RC; +LEVO75TA73 PO
[2018-08-24 16:37] LABS: PLATELET COUNT, AUTOMATED 231 K/uL (150-450)
== END ==
LOC: LAB 15:57
PROVIDERS: ATTEND Nurse Practitioner Family
DX: K59.00 Constipation, unspecified (principal); K62.5 Hemorrhage of anus and rectum
CPT/HCPCS: 36415; 82040; 82247; 82310; 82374; 82435; 82565; 82947; 84075; 84132; 84155; 84295; 84443; 84450; 84460; 84520; 85025